=== PATIENT | female | born 1965 | race Caucasian/White ===

== ENCOUNTER 2016-12-04 08:00 | Day surgery (SDC) | payer BC, OTHER ==
[~2016-12-04] VITALS: Ht 157.5 cm; Wt 69.4 kg
[~2016-12-04 08:00] MED LIST: COMPETE1 EACH PO; DONNATAL E16.2 MG/5 PO; DONNATAL TABL16.2 MG PO; IRON325 M1 PO; LEVOTHROID50 MCG PO; LEVOTHYROXINE75 MCG PO; LEVOTHYROXINE88 MCG PO; ONDANSETRON ODT8 MG PO; VITAMIN D50000 UNI1 PO
[2016-12-04] MEDS ORDERED: MELATONIN3 MG PO (08:18)
--- NOTE | 2016-12-04 12:01 | NUR ---
12/04/16 1201 Amanda Guerra 5368-PATIENT ARRIVED TO PACU ON 6L MASK O2 SAT 100% PATIENT REACTIVE TO VOICE AND OPENS EYES DENIES PAIN. ABRAHAN PAD IN PLACE CDI. PATIENT SLEEPING.
--- NOTE | 2016-12-04 12:41 | NUR ---
1235 - PT RETURND FROM PACU. AWAKE AND ORIENTED. COMPLAINTS OF CRAMPING PAIN 3/10 THAT SHE DOES NOT WANT MEDICATION FOR. PT ADVISED TO TAKE A PAIN PILL BEFORE SHE LEAVES TODAY. PT TOLEARTING SIPS OF WATER BUT DOES NOT WANT FOOD YET. PT REQEUSTS A DIET COKE (PROVIDE). FAMILY AT BEDSIDE. BED RAILS UP. CALL LIGHT WITHIN REACH.
[2016-12-04] MEDS ORDERED: IBUPROFEN800 MG PO (13:42)
[2016-12-04] MEDS ORDERED: NORCO 5-325 TA1 EACH PO (13:43)
--- NOTE | 2016-12-04 14:24 | NUR ---
1310: PATIENT ASSISTED OOB AND TO BATHROOM. GAIT STEADY. VOID WITHOUT DIFFICULTY. GAIT STEADY BACK TO ROOM. GIVEN CRACKERS TO EAT. 1335: TOLERATED CRACKERS, WATER, AND SODA. VS CHECKED. IV DC'D WNL. DRESSING APPLIED. 1358: DISCHARGE INSTRUCTIONS GIVEN TO PATIENT AND . PATIENT DISCHARGED TO HOME WITH VIA WHEELCHAIR.
--- NOTE | 2017-01-14 12:15 | OR ---
[facility] [address], [place] [address] Signed DATE OF SERVICE: 12/04/2016 PREOPERATIVE DIAGNOSES: 1. Abnormal uterine bleeding. 2. Iron deficiency anemia. 3. History of obstetrical laceration with symptomatic scar. POSTOPERATIVE DIAGNOSES: 1. Abnormal uterine bleeding. 2. Iron deficiency anemia. 3. History of obstetrical laceration with symptomatic scar. PROCEDURES PERFORMED: 1. Hysteroscopy. 2. Dilation and curettage. 3. Endometrial ablation with NovaSure device. 4. Revision of obstetrical scar. SURGEON: Keila Dorantes DO ANESTHESIA: General. ESTIMATED BLOOD LOSS: 10 mL. SPECIMENS: Endometrial curettings. FINDINGS: Obstetrical scar with symptomatic skin flap just left to the posterior labial commissure. It was approximately 3.5 cm long in length. The patient with large cervix with nabothian cyst. On hysteroscopy normal endometrium with no polyps or fibroids. At the end the procedure, good hemostasis and cosmesis. COMPLICATIONS: None. INDICATION: Ms. Adams is a very pleasant 51-year-old , white female, who presented with history of heavy periods approximately 3-4 years. She had heavy bleeding with noted iron deficient macrocytic anemia and received iron infusions with Dr. Mcguire. She is status post tubal ligation declines hormones or IUDs. The patient requested endometrial ablation. Of note, the patient does have an old obstetrical scar with large skin flap that causes hygiene issues after bowel movements and pain and hiking during intercourse. She requests that this be removed. Risks, benefits and alternatives were discussed in Electronically Signed By: KEILA DORANTES DO 01/14/17 1215 PATIENT NAME: WILLIAMS ADAMS OPERATIVE REPORT DATE OF : 67 PHYSICIAN: KEILA DORANTES DO REPORT #: [id number] REPORT IS CONFIDENTIAL AND NOT TO BE RELEASED WITHOUT AUTHORIZATION [facility] [address], [place] [address] Signed detail. The patient understands and wished to proceed with the procedure. TECHNIQUE: The patient was taken to the operating room. Time-out was performed confirming correct patient, correct procedure. General anesthesia was adequately established. The patient was prepped and draped in the dorsal lithotomy position with feet in Yellofin stirrups. ICPs were on and running. No preop antibiotics were indicated per SCIP protocol. A weighted speculum was placed in the vagina and the anterior lip of the cervix was grasped with Allis c l amp. The cervix was gently dilated to a #7 using Hegar dilators. An operative hysteroscope was placed in the cervical os and advanced under direct visualization into the uterine cavity. Bilateral tubal ostia were identified and normal appearing endometrium was noted. No polyps or fibroids were noted. The hysteroscope was withdrawn and a sharp curettage was performed. An endometrial curettings were sent to the pathologist for further evaluation. The cervix was measured and found to be 4 cm. The total uterine length was 9 cm yielding a cavity length of 5 cm. NovaSure device was selected and advanced gently to the fundus. The array was deployed and uterine width was noted at 4.5 cm. Cavity assessment was performed and passed, and endometrial ablation was performed for a total of 1 minute and 25 seconds. The array was returned to the device, and the device was removed from the uterus without complication. The hysteroscope was replaced and good global endometrial ablation was noted. The cervix was hemostatic, and attention was turned to the obstetrical laceration. This was grasped with Allis clamps and cut at the base using surgical scalpel after infiltration with 0.25% Marcaine with epinephrine. The resulting defect was then closed in 3 layers, two deep layers with 3-0 Vicryl and subcu with 4-0 Monocryl. Good hemostasis was appreciated. Sponge, needle and instrument count was correct x2 at the end of the procedure. A cervical block was performed prior to endometrial ablation using 0.25% Marcaine with epinephrine for a total of 10 mL local. Keila Dorantes DO JDW/Tootie /[id number] Electronically Signed By: KEILA DORANTES DO 01/14/17 1215 PATIENT NAME: WILLIAMS ADAMS MIKEY OPERATIVE REPORT DATE OF : 67 PHYSICIAN: KEILA DORANTES DO REPORT #: [id number] REPORT IS CONFIDENTIAL AND NOT TO BE RELEASED WITHOUT AUTHORIZATION
== END 2016-12-04 11:35 | disposition home or self-care (01) ==
LOC: OPS 08:00 → DS 08:00 → OPS 09:30
PROVIDERS: Obstetrics & Gynecology
PROC: 0U5B8ZZ Destruction of Endometrium, Via Natural or Artificial Opening Endoscopic (ICD-10-PCS; principal; 2016-12-04 09:30)
PROC: 0UDB8ZX Extraction of Endometrium, Via Natural or Artificial Opening Endoscopic, Diagnostic (ICD-10-PCS; 2016-12-04 09:30)
DX: N93.9 Abnormal uterine and vaginal bleeding, unspecified (principal); D50.9 Iron deficiency anemia, unspecified; E03.9 Hypothyroidism, unspecified; Z85.828 Personal history of other malignant neoplasm of skin; Z98.51 Tubal ligation status; Z98.84 Bariatric surgery status; Z98.890 Other specified postprocedural states
CPT/HCPCS: 00952; J1885; J2405; J2704; J3010; J7120

== ENCOUNTER 2019-01-27 05:35 | Day surgery (SDC) | payer OTHER, BC ==
[~2019-01-27] VITALS: Ht 157.5 cm; Wt 69.8 kg
--- NOTE | ~2019-01-27 | OR ---
[facility] [address] [place] [address] [address] [place], [place] [address] Draft DATE OF OPERATION: 01/27/2019 SURGEON: Keila Dorantes DO PREOPERATIVE DIAGNOSES: 1. Secondary dysmenorrhea. 2. Nabothian cyst. POSTOPERATIVE DIAGNOSES: 1. Secondary dysmenorrhea. 2. Nabothian cyst. PROCEDURES PERFORMED: 1. Total laparoscopic hysterectomy. 2. Bilateral salpingectomy. 3. Cystoscopy. SPRAYER OPERATOR: Rigo Sahu MD. INTRAOPERATIVE CONSULT: Carol Lopes MD, Urology. ANESTHESIA: General. ESTIMATED BLOOD LOSS: 100 mL. SPECIMEN: Uterus, cervix, and bilateral fallopian tubes. FINDINGS: Normal external genitalia. Normal vagina with large cervix noted secondary to posterior nabothian cyst. Intracavitary dense adhesions of the uterus secondary to prior ablation. On laparoscopy, no significant adhesions noted despite a complicated surgical history. Right upper quadrant status post cholecystectomy. Left upper quadrant with postop changes consistent with prior bariatric surgery. Normal appendix. In the pelvis, the patient is status post tubal ligation. 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 PATIENT NAME: WILLIAMS ZAYAS OPERATIVE REPORT DATE OF : 67 REPORT #: [id number] PHYSICIAN: KEILA DORANTES DO PCP: SHELLY DODD MD REPORT IS CONFIDENTIAL AND NOT TO BE RELEASED WITHOUT AUTHORIZATION [facility] [address], [place] [address] Draft After the uterus was removed, moderate bleeding was noted from the right paracervical tissue and was made hemostatic with judicious use of monopolar energy and Evicel. On cystoscopy, there was a submucosal hematoma with edema noted in the bladder dome. No evidence of suture, rent, or other injury to the bladder. Dr. Lopes was consulted intraoperatively and feels this is benign and to be followed in the office with cystoscopy in 2-3 months. Bilateral ureteral jets noted. The patient to recovery room in good and stable condition. COMPLICATIONS: None. INDICATIONS: Ms. Zayas is a very pleasant 53-year-old white female, who presented with abnormal uterine bleeding and underwent uterine ablation almost two years ago. She then developed secondary dysmenorrhea. We tried to treat this conservatively, however, symptoms worsened. 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 The patient was consented for total laparoscopic hysterectomy, bilateral salpingectomy, and cystoscopy. Risks, benefits, and alternatives were discussed in detail with the patient. Prior surgical records were reviewed and the patient wishes to proceed with the procedure. TECHNIQUE: The patient was taken to the operating room. A time-out was performed to confirm correct patient, correct procedure. General anesthesia was adequately established. The patient was prepped and draped in dorsal lithotomy position with the feet in Yellofin stirrups. ICPs were on and running. The patient received clindamycin 900 mg IV as well as gentamicin 5 mg/kg per ACOG guidelines secondary to her penicillin allergy. No heparin was indicated. A Byers catheter was inserted. The patient had a prior ablation, decision was made to proceed with laparoscopic entry, so that uterine manipulation could be performed under direct visualization with the laparoscope. 0.25% Marcaine with epinephrine was infiltrated just below the umbilicus and an incision was made. The fascia was grasped with hemostats, elevated, and entered with Metzenbaum scissors. Fascial incision was extended bilaterally using Metzenbaum scissors. The peritoneum was then grasped with hemostats, elevated, and entered sharply. Domingo trocar was then placed and pneumoperitoneum was established. Survey of the abdomen and pelvis was performed with the above findings. A 5 mm assist port was placed in left lower quadrant under direct visualization and an 8 mm expanding assist port was placed in the right lower quadrant under direct visualization without complications. Attention was then turned to the insertion of the uterine manipulator. The cervix was gently dilated using Hegar dilators, however, after just a few centimeters dense scar tissue was noted in the endometrial cavity. A large VCare uterine manipulator was selected and this was advanced carefully in the midportion of the uterus while undergoing direct PATIENT NAME: WILLIAMS ZAYAS OPERATIVE REPORT DATE OF : 67 REPORT #: [id number] PHYSICIAN: KEILA DORANTES DO PCP: SHELLY DODD MD REPORT IS CONFIDENTIAL AND NOT TO BE RELEASED WITHOUT AUTHORIZATION [facility] [address] [place] [id number] Draft visualization with the laparoscope. No perforation was noted. The VCare colpotomy cup was secured and the entire cervix was noted to be within this cup. The surgeon's gloves were then changed and attention was turned to the hysterectomy. The left uteroovarian ligament was grasped with LigaSure bipolar device and was fulgurated and divided with good hemostasis. The left fallopian tube was then elevated and divided and removed, sent to pathology for further evaluation. The left round ligament was then fulgurated and divided and the leaves of the broad ligament were . The bladder was pushed well below the colpotomy cup. The posterior leaf of the broad ligament was divided to the uterosacral ligament on the left and across the midline. This process was repeated on the right with removal of the fallopian tube. Fulguration and division of the utero-ovarian ligament and round ligament and division of the leaves of the broad ligament. Attention was then turned to the uterine vessels. The left uterine vessels were fulgurated and divided with good hemostasis. The paracervical tissue was then divided and the process was repeated on the right with good results. Colpotomy was then performed using Sonicision device with entry at six o'clock. The Sonicision dissection was then carried along the groove of the green cup circumferentially with good hemostasis. The uterus was then delivered through the vagina intact and sent to pathology for further evaluation. The vagina was stuffed with a wet lap and a glove to maintain pneumoperitoneum. Moderate amount of bleeding was noted from the vagina. At this point and attention was then turned backed to the pelvis laparoscopically. Some oozing was noted from the posterior edge as well as from the right paracervical tissue. This was grasped, tented up with a Yvette grasper and monopolar cautery was used very judiciously with careful attention to avoid thermal injury to surrounding GI and structures. This was made hemostatic without difficulty. Colpotomy was then repaired using a V-Loc suture with an Endostitch device with careful attention to incorporate the uterosacral ligaments and vaginal epithelium with each bite. Good vaginal support and closure were noted. A very small amount of oozing was noted just lateral to the right uterosacral ligament and this was made hemostatic with Evicel as well as pressure. Pressure was held for 2-3 minutes. The pressure was relieved and no additional oozing was noted. The pneumoperitoneum was slowly reduced with no additional bleeding. The pelvis was irrigated and again no bleeding was noted. The Domingo trocar was removed and the assist ports were removed and the pneumoperitoneum completely reduced. The fascia was reapproximated using 0 Vicryl in a running nonlocked manner. Skin was reapproximated using 4-0 Vicryl in subcuticular stitch with good hemostasis and cosmesis. Attention was then turned to cystoscopy. The Byers catheter was removed and a cystoscope was placed into the urethral meatus and advanced under direct visualization into the bladder. At the dome of the bladder, there was an edematous mass consistent with mucosal trauma and a few scattered petechial areas in the vicinity. Dr. Lopes was consulted intraoperatively and presented. She feels that this is a benign reaction secondary to trauma from the Byers catheter and agrees to follow up with the patient with a cystoscopy in the office in 2-3 months to ensure resolution of this. Bilateral ureteral jets were noted. The bladder was drained and the Byers catheter was reinserted PATIENT NAME: WILLIAMS ZAYAS OPERATIVE REPORT DATE OF : 67 REPORT #: [id number] PHYSICIAN: KEILA DORANTES DO PCP: SHELLY DODD MD REPORT IS CONFIDENTIAL AND NOT TO BE RELEASED WITHOUT AUTHORIZATION [facility] [address], [place] [address] Draft and the patient was taken to PACU in good and stable condition. Sponge, needle, and instrument count was correct x2 at the end of procedure. Dr. Sahu was present and participated in all portions of procedure. Keila Dorantes DO JDW/JORGE /[id number] Copies: ~ PATIENT NAME: WILLIAMS ZAYAS MIKEY OPERATIVE REPORT DATE OF : 67 REPORT #: [id number] PHYSICIAN: KEILA DORANTES DO PCP: SHELLY DODD MD REPORT IS CONFIDENTIAL AND NOT TO BE RELEASED WITHOUT AUTHORIZATION
[~2019-01-27 05:35] MED LIST changes: +IBUPROFEN800 MG PO; +MELATONIN3 MG PO; +MULTIPLE VITAM1 EAC2 PO; +NORCO 5-325 TA1 EACH PO; +VITAMIN D-32000 UNIT PO
[2019-01-27] MEDS ORDERED: ACETAMINOPHEN-1 EACH PO (05:54)
--- NOTE | 2019-01-27 09:38 | NUR ---
01/27/19 0974 Bekah Mcghee 0977 PATIENT ARRIVES TO PACU RESTING WITH EYES CLOSED, ANSWERS QUESTIONS APPROPRIATELY, COUGH AND DEEP BREATHS WITH COMMAND. RESP EVEN AND UNLABORED, ROOM AIR SATS >93%.
--- NOTE | 2019-01-27 10:34 | NUR ---
PT ARRIVES TO DS RM 5 FROM PACU AWAKE AND ALERT. PT DENIES ANY PAIN OR NAUSEA. PT HAS WATER IN HAND, TOLERATES SMALL SIPS. RESP EVEN AND UNLABORED, SATS 100% ON RA. PT SHIVERING, PROVIDED WARM BLANKET AND JANUARY HUGGER PLACED ON WARM. CALL LIGHT WITHIN REACH, SPOUSE AT BEDSIDE.
--- NOTE | 2019-01-27 11:07 | NUR ---
NOEL CATHETER EMPTIED OF APPROX 200 MLS FLUORESCENT YELLOW URINE. NOEL CATHETER BALLOON EMPTIED OF APPROX 10 MLS CLEAR FLUID, NOEL REMOVED WNL. PT TOLERATES WELL. 1110: PT STATES URGE TO VOID AND WOULD LIKE TO AMBULATE TO BATHROOM. PT SITS AT SIDE OF BED, STATES SOME DIZZINESS AND THEN SLOWLY STANDS WITH RN AND SPOUSE ASSIST. STEADY GAIT AND DIZZINESS RESOLVES. PT SPOUSE STAYS IN BATHROOM WITH PT.
--- NOTE | 2019-01-27 11:15 | NUR ---
PT ABLE TO VOID APPROX 100 MLS FLUORESCENT YELLOW URINE IN HAT. PT STATES URGE FOR BOWEL MOVEMENT, BUT ONLY PASSES FLATUS AT THIS TIME. PT ENCOURAGED TO NOT STRAIN. PT BACK TO RM 5 WITH RN ASSIST. PT DENIES SCD'S AND STATES, "I WILL PUMP MY FEET AND MOVE MY LEGS." PT PROVIDED HOT TEA AND CRACKERS. SPOUSE AT BEDSIDE. PT DENIES NAUSEA AND STATES 2/10 PAIN IN UMBILICUS TROCAR SITE.
--- NOTE | 2019-01-27 12:00 | NUR ---
LE 1200: SOUP ARRIVES FROM DIETARY, PT TOLERATES WELL WITH NO C/O NAUSEA. LE 1230: PT UP TO BATHROOM SEVERAL TIMES WITH RN ASSIST, VOIDS QS. PT HAS STEADY GAIT AND DENIES DIZZINESS WITH AMBULATION. PT UNABLE TO HAVE BOWEL MOVEMENT, PASSES FLATUS.
--- NOTE | 2019-01-27 13:45 | NUR ---
PT RESTING IN BED AWAKE AND ALERT, DENIES NAUSEA AND RATES PAIN 3/10 IN ABD "GAS PAIN." ICED WATER REFILLED. PT SPOUSE AT BEDSIDE.
--- NOTE | 2019-01-27 14:45 | NUR ---
1445: PT EXPRESSES DESIRE TO DISCHARGE HOME. IV REMOVED WNL, TIP IN TACT. PT DRESSES SELF WITH SPOUSE IN ROOM. 1500: DC INSTRUCTIONS PRESENTED TO PT AND SPOUSE, ALL QUESTIONS ADDRESSED. PAIN PRESCRIPTION GIVEN TO PATIENT. PT DC'S FROM DS RM 5 VIA WC WITH RN AND SPOUSE TO HOME.
== END 2019-01-27 15:10 | disposition home or self-care (01) ==
LOC: OPS 05:35 → DS 05:35 → OPS 06:45 → DS 06:45 → OPS 15:10
PROVIDERS: Obstetrics & Gynecology
PROC: 0UT94ZZ Resection of Uterus, Percutaneous Endoscopic Approach (ICD-10-PCS; principal; 2019-01-27 06:45)
PROC: 0UT74ZZ Resection of Bilateral Fallopian Tubes, Percutaneous Endoscopic Approach (ICD-10-PCS; 2019-01-27 06:45)
DX: N87.9 Dysplasia of cervix uteri, unspecified (principal); N88.8 Other specified noninflammatory disorders of cervix uteri; N72 Inflammatory disease of cervix uteri; N94.5 Secondary dysmenorrhea; E03.9 Hypothyroidism, unspecified; D50.9 Iron deficiency anemia, unspecified; Z88.0 Allergy status to penicillin; Z91.041 Radiographic dye allergy status; Z79.899 Other long term (current) drug therapy
CPT/HCPCS: 00840; J0131; J1100; J1580; J1885; J2250; J2405; J2704; J3475; J3490; J7060; J7120